=== PATIENT | female | born 2000 | race American Indian/Alaskan Native ===

== ENCOUNTER 2019-07-12 17:20 | Emergency (ER) | payer SELFPAY ==
--- NOTE | 2019-07-12 18:40 | Event Note ---
ED Screening Note Date of service: 07/12/19 Time: 18:37 ED Screening Note: This is a 18 y.o. F. that presents to the ER with nausea, vomiting, and abdominal pain for 1 week. LMP 06/27/2019, G0 - vaginal bleeding, discharge, back pain, n/v/d, fever, or chest pain This initial assessment/diagnostic orders/clinical plan/treatment(s) is/are subject to change based on patients health status, clinical progression and re- assessment by fellow clinical providers in the ED. Further treatment and workup at subsequent clinical providers discretion. Patient/guardian urged not to elope from the ED as their condition may be serious if not clinically assessed and managed. Initial orders include: Labs
[2019-07-12 18:41] VITALS: BP 136/67
[2019-07-12 18:51] LABS: Basophils # (Auto) 0.1 K/mm3 (0.0-0.1); Basophils % (Auto) 1.4 % (0.0-1.8); Eosinophils # (Auto) 0.2 K/mm3 (0.0-0.4); Eosinophils % (Auto) 3.1 % (0.0-4.3); Hematocrit 35.8 % (30.3-42.9); Lymphocytes # (Auto) 1.5 K/mm3 (1.2-5.4); Mean Corpuscular HGB Conc 34 % (30-34); Mean Corpuscular Volume 80 fl (79-97); Monocytes # (Auto) 0.6 K/mm3 (0.0-0.8); Monocytes % (Auto) 10.7 % (0.0-7.3); Platelet Count 286 K/mm3 (140-440); Red Blood Count 4.45 M/mm3 (3.65-5.03); Red Cell Distribution Width 14.4 % (13.2-15.2)
[2019-07-12 19:15] LABS: Alanine Aminotransferase 11 units/L (7-56); Albumin 4.8 g/dL (3.9-5); BUN/Creatinine Ratio 20; Blood Urea Nitrogen 12 mg/dL (7-17); Calcium 9.2 mg/dL (8.4-10.2); Hemolysis Index 3
[2019-07-12 19:52] LABS: HCG Qualitative,Urine Negative (Negative)
[2019-07-12 19:58] LABS: Bilirubin,Urine NEG (Negative); Blood,Urine NEG (Negative); Color,Urine Yellow (Yellow); Mucus,Urine FEW /HPF; Protein,Urine <15 mg/dL mg/dL (Negative); WBC,Urine < 1.0 /HPF (0.0-6.0)
== END 2019-07-12 19:49 | disposition left against medical advice (07) ==
LOC: ED 17:20
DX: R11.2 Nausea with vomiting, unspecified (principal); Z53.21 Procedure and treatment not carried out due to patient leaving prior to being seen by health care provider
CPT/HCPCS: 36415; 80053; 81001; 81025; 85025

== ENCOUNTER 2019-12-21 12:38 | Outpatient (CLI) | payer MEDICAID ==
[2019-12-21] MEDS ORDERED: LACTATED RINGERS 500 ML IV ONE (12:57)
[2019-12-21] MEDS ORDERED: TERBUTALINE 1 MG/1 ML INJ SUB-Q SCH (14:00)
[2019-12-21 15:48] VITALS: BP 121/56
== END 2019-12-21 16:26 | disposition home or self-care (01) ==
LOC: TRG 12:38 → APU 12:39 → TRG 16:26
PROVIDERS: ATTEND Obstetrics & Gynecology
DX: O36.8120 Decreased fetal movements, second trimester, not applicable or unspecified (principal); O62.9 Abnormality of forces of labor, unspecified; Z3A.25 25 weeks gestation of pregnancy; Z87.891 Personal history of nicotine dependence
CPT/HCPCS: 59025; 96372; J3105; J7120; 96360

== ENCOUNTER 2020-02-17 08:26 | Outpatient (CLI) | payer MEDICAID ==
[2020-02-17 09:14] VITALS: BP 107/53
[2020-02-17] MEDS ORDERED: LACTATED RINGERS 1,000 ML IV ONE (10:00)
[2020-02-17 11:18] LABS: Bacteria,Urine 1+ /HPF (Negative); Bilirubin,Urine NEG (Negative); Blood,Urine NEG (Negative); Color,Urine Yellow (Yellow); Mucus,Urine FEW /HPF; Protein,Urine <15 mg/dL mg/dL (Negative); Urobilinogen,Urine < 2.0 mg/dL (<2.0)
== END 2020-02-17 12:47 | disposition home or self-care (01) ==
LOC: TRG 08:26 → APU 08:31 → TRG 12:47
PROVIDERS: ATTEND Obstetrics & Gynecology
DX: O62.9 Abnormality of forces of labor, unspecified (principal); Z3A.33 33 weeks gestation of pregnancy; Z87.891 Personal history of nicotine dependence
CPT/HCPCS: 59025; 81001; 96360; 96361; J7120

== ENCOUNTER 2020-03-10 16:30 | Outpatient (CLI) | payer MEDICAID ==
[2020-03-10] MEDS ORDERED: LACTATED RINGERS 1,000 ML IV ONE (16:38)
[2020-03-10 16:51] VITALS: BP 124/58
[2020-03-10 18:07] LABS: Bacteria,Urine 1+ /HPF (Negative); Bilirubin,Urine NEG (Negative); Blood,Urine NEG (Negative); Color,Urine Yellow (Yellow); Mucus,Urine FEW /HPF; Protein,Urine <15 mg/dL mg/dL (Negative); Urobilinogen,Urine < 2.0 mg/dL (<2.0)
== END 2020-03-10 18:43 | disposition home or self-care (01) ==
LOC: TRG 16:30 → APU 16:31 → TRG 18:43
PROVIDERS: ATTEND Obstetrics & Gynecology
DX: O26.893 Other specified pregnancy related conditions, third trimester (principal); R10.9 Unspecified abdominal pain; Z3A.36 36 weeks gestation of pregnancy
CPT/HCPCS: 59025; 81001

== ENCOUNTER 2020-03-16 22:13 | Outpatient (CLI) | payer MEDICAID ==
[2020-03-17 01:27] VITALS: BP 112/70
== END 2020-03-17 00:05 | disposition home or self-care (01) ==
LOC: TRG 22:13 → APU 22:16 → TRG 03-17 00:05
PROVIDERS: ATTEND Obstetrics & Gynecology
DX: O47.1 False labor at or after 37 completed weeks of gestation (principal); Z3A.37 37 weeks gestation of pregnancy
CPT/HCPCS: 59025